=== PATIENT | male | born 1995 | race Caucasian/White ===

== ENCOUNTER → 2017-04-13 | Outpatient (CLI) | payer BC ==
--- NOTE | 2017-04-13 11:48 | FL ---
EXAMINATION TYPE: FL UGI DATE OF EXAM: 04/13/2017 10:21 AM COMPARISON: NONE HISTORY: Nausea and vomiting in the morning TECHNIQUE: A double air contrast UGI study is performed. FINDINGS: The esophagus dilates to normal caliber has normal contour gastroesophageal junction. Gastroesophagea l junction caliber. Several episodes of reflux into the distal esophagus were observed during this ex amination. Fundus body and antrum appear normal. Barium readily empties into the normally positioned duodenal ca p and sweep. Mild duodenal fold hypertrophy is present in the duodenal bulb and within the fourth por tion duodenum. Some underlying apthous ulcers may be present. Correlate for H. pylori. Mild duodeniti s may be present. IMPRESSIONS: 1. Gastroesophageal reflux. 2. Mild duodenitis. Apthous ulcer may be present. Correlate for H. pylori
== END ==
LOC: RADFLWHC 09:14
PROVIDERS: ATTEND Family Medicine
DX: K21.9 Gastro-esophageal reflux disease without esophagitis (principal); K29.80 Duodenitis without bleeding
CPT/HCPCS: 74240

== ENCOUNTER → 2022-05-04 | Outpatient (CLI) | payer BC ==
--- NOTE | 2022-05-04 18:15 | CONS ---
CONSULTATION DATE OF SERVICE: 05/04/2022 This 26-year-old gentleman has been evaluated in [facility] for possible obstructive sleep apnea-hypopnea syndrome. HISTORY OF PRESENT ILLNESS/SLEEP-WAKE EVALUATION: Patient's usual sleep schedule on weekdays is from 11 p.m. to 7 or 7:30 a.m. and on weekends from midnight until 9 or 9:30 a.m. Sometimes he has problems with falling asleep. He has a TV set in the bedroom. He usually sleeps on the back and side positions with loud snoring and awakenings from sleep up to 4 times with up to 2 episodes of nocturia. Positive history of restless legs, sweating, panic attacks. No history of hypnagogic hallucinations, sleep paralysis or cataplexy. Positive history of kicking at night. In the morning the patient wakes up tired, has difficulties paying attention, worries about his sleep, has problems with memory, concentration and anxiety. [place] Sleepiness Scale is significantly increased at 13. PAST MEDICAL HISTORY: Positive for asthma, ADHD, bipolar. PAST SURGICAL HISTORY: Appendectomy, hernia repair. MEDICATIONS: Albuterol, Adderall mg once a day, Dulera. SOCIAL HISTORY: Negative for smoking. Alcohol consumption occasional. FAMILY HISTORY: Snoring, mental illness, restless legs. REVIEW OF SYSTEMS: Multiple awakenings from sleep, loud snoring. No fevers. No double vision. No recent chest pain. No shortness of breath. No abdominal pain. No bleeding episodes. No blood in the urine. No seizure episodes. PHYSICAL EXAMINATION: GENERAL: Pleasant patient in no distress. VITAL SIGNS: BP 114/72, HR 72, RR 14, height 6 feet 3-1/2 inches, weight 296.4 pounds, body mass index 36.5, temperature 97.4, oxygen saturation at room air 100%. HEENT: PERRLA, EOMI, evaluation of oropharynx showed tongue protrudes midline. Low position of soft palate; Mallampati III to IV. NECK: Supple, no JVD. Thyroid is not palpable. Neck is wide; 18-1/3 inches in circumference. LUNGS: Clear to percussion and to auscultation. Good air exchange. No wheezing or rhonchi. HEART: S1, S2 regular. No murmurs, gallops, or rubs. ABDOMEN: Soft and nontender. Bowel sounds are present. No organomegaly appreciated. EXTREMITIES: No clubbing or cyanosis. MANAGER QUALITY: Awake, alert, and oriented X3. Cranial nerves 2 to 7 intact. There is no fasciculation or atrophy. noted. No focal deficits observed. IMPRESSION: 1. Snoring, multiple awakenings from sleep, low position of soft palate, Mallampati III to IV, wide neck, 18-1/3 inches in circumference, excessive daytime sleepiness, [place] Sleepiness Scale of 13; obstructive sleep apnea-hypopnea syndrome. 2. Obesity; body mass index 36.5. 3. Kicking at night; possibly periodic limb movements. 4. Restless leg symptoms. 5. History of asthma. 6. History of attention deficit hyperactivity disorder. 7. History of bipolar. 8. Status post appendectomy. 9. Status post hernia repair. PLAN: 1. Home sleep apnea test for evaluation of patient's breathing during sleep. 2. CPAP/BiPAP titration if sleep study confirms obstructive sleep apnea-hypopnea syndrome. 3. Preferable position during sleep on the side. 4. No driving if patient feels any sleepiness. 5. I will see patient for follow up visit to explain results of testing and following plan. 6. The patient may need a polysomnogram for objective evaluation of his movements during sleep; possible periodic limb movements. Thank you very much for referring this patient for consultation. Sincerely, Pasquale Sesay MD, PhD, FAASM Diplomat of [place] [employer] Sleep Medicine Board of [place] [employer] [facility] Assistant [facility] [place] MMODL / IJN: [id number] /
== END | disposition home or self-care (01) ==
LOC: SLEEP 14:30
PROVIDERS: ATTEND Internal Medicine
DX: G47.33 Obstructive sleep apnea (adult) (pediatric) (principal); E66.9 Obesity, unspecified; Z68.36 Body mass index [BMI] 36.0-36.9, adult; G25.81 Restless legs syndrome; Z87.09 Personal history of other diseases of the respiratory system; Z86.69 Personal history of other diseases of the nervous system and sense organs; Z98.890 Other specified postprocedural states; Z90.49 Acquired absence of other specified parts of digestive tract

== ENCOUNTER → 2023-11-07 | Outpatient (CLI) | payer BC ==
--- NOTE | 2023-11-07 17:28 | P.PN ---
Subjective DATE: 11/07/2023 FOLLOW UP VISIT. Patient with obstructive sleep apnea hypopnea syndrome return to sleep center for follow-up visit. Recently patient had sleep study which documented obstructive sleep apnea hypopnea syndrome. Patient was initiated on PAP therapy and today is first visit after treatment was started. Patient was able to use PAP equipment every night for the whole night. The patient does not have significant problems with the mask, PAP pressure and humidification. [place] sleepiness scale is borderline 10. I checked information from PAP unit. PAP unit pressure extra 15, average 13.3 cm H2O. Usage is 100% and 87 % for more then 4 hours, average 5.75 hours per night. Leak is 22.3 l/m, which is in acceptable range. Apnea Hypopnea Index is 0.4, which is normal. MEDICATIONS:1. Albuterol 2. Adderall 3. Dulera During physical exam: GENERAL: A pleasant patient without any distress. VITAL SIGNS: BP 144/81, HR 76, RR 18, weight 305.8, temperature 97.4, oxygen saturation at room air 95%. HEENT: PERRLA, EOMI.low position of soft palate, Mallapati 3-4. NECK: Supple. No JVD. LUNGS: Clear to percussion and to auscultation. Good air exchange. No wheezing or rhonchi. HEART: S1, S2 regular. ABDOMEN: Soft and nontender.[] EXTREMITIES: No clubbing or cyanosis. IRRIGATION FLUME LAYER: Awake, alert, and oriented x3. No focal deficit. Impressions: 1. Obstructive sleep apnea-hypopnea syndrome. Patient demonstrated great compliance with treatment, benefiting from treatment. 2. Obesity. 3. History of asthma. 4. ADHD. 5. History of bipolar. 6. Status post appendectomy. 7. Status post hernia repair. Plan: 1. Continue using PAP equipment every night for the whole night. 2. To change air filter at least 1-2 times per month. 3. PAP unit should stay lower then position of the head. 4. Advised patient to remove all remaining water from humidifier canister daily and make it dry after each usage. Refill canister with fresh distilled water before each usage. 5. Sleep hygiene with regular time in bed for at least 8 hours. 6. Precautions related to driving. No driving if feel any sleepiness. 7. I will maintain prescription for PAP supplies including mask, tube, filters. 8. Follow up visit in 6 months or earlier if patient has any problems. 9. Watching weight. Thank you very much for allowing me to participate in the management of your patient. Pasquale Sesay MD, PhD, FAASM. Diplomat of [place] [employer], Sleep Medicine Board by [place] [employer] [facility] [place] [facility] [place]
== END ==
LOC: 3 N SLEEP 16:24
PROVIDERS: ATTEND Internal Medicine
DX: G47.33 Obstructive sleep apnea (adult) (pediatric) (principal); E66.9 Obesity, unspecified; J45.909 Unspecified asthma, uncomplicated; F90.9 Attention-deficit hyperactivity disorder, unspecified type; F31.9 Bipolar disorder, unspecified; Z90.49 Acquired absence of other specified parts of digestive tract; K46.9 Unspecified abdominal hernia without obstruction or gangrene; Z99.89 Dependence on other enabling machines and devices
CPT/HCPCS: 99212